=== PATIENT | male | born 1930 | race Caucasian/White ===

== ENCOUNTER 2018-02-02 03:11 | Emergency (ER) | payer MEDICARE, OTHER ==
[~2018-02-02] VITALS: Ht 175.3 cm; Wt 68.2 kg
[2018-02-02 03:54] LABS: GLUCOSE,POINT OF CARE 121 MG/DL (70-110)
[2018-02-02] MEDS ORDERED: TAMS0.4C32 PO (04:01)
[2018-02-02] MEDS ORDERED: LEVO50 PO (04:01)
[2018-02-02] MEDS ORDERED: ASPI81 PO (04:01)
[2018-02-02] MEDS ORDERED: RANI150T7 PO (04:01)
[2018-02-02] MEDS ORDERED: BUME1TAB17 PO (04:01)
[2018-02-02] MEDS ORDERED: GABA-529 PO (04:01)
[2018-02-02] MEDS ORDERED: BACITRACIN 0.9 GM PACKET OINTMENT TP ONE (06:00)
[2018-02-02 06:22] VITALS: BP 110/58
== END 2018-02-02 06:54 | disposition home or self-care (01) ==
LOC: EMS 03:12
DX: S01.01XA Laceration without foreign body of scalp, initial encounter (principal); S00.12XA Contusion of left eyelid and periocular area, initial encounter; I48.91 Unspecified atrial fibrillation; I50.9 Heart failure, unspecified; E11.9 Type 2 diabetes mellitus without complications; E03.9 Hypothyroidism, unspecified; Z88.5 Allergy status to narcotic agent; Z88.6 Allergy status to analgesic agent; Z88.1 Allergy status to other antibiotic agents; W01.0XXA Fall on same level from slipping, tripping and stumbling without subsequent striking against object, initial encounter; Y93.89 Activity, other specified; Y92.89 Other specified places as the place of occurrence of the external cause; Y99.8 Other external cause status
CPT/HCPCS: 70450; 70486; 72125; 99284